=== PATIENT | male | born 1960 | race Caucasian/White ===

== ENCOUNTER 2024-12-30 08:43 | Day surgery (SDC) | payer OTHER ==
[2024-12-30 09:07] VITALS: TEMP 98.6
[2024-12-30] MEDS: IV FLUID CONTINUATION 1,000 ML IV ONE ×2 (09:26→09:37)
[2024-12-30] MEDS: MIDAZOLAM 2 MG/2 ML VIAL IV ONE (09:26)
[2024-12-30] MEDS: LACTATED RINGERS 1,000 ML IV SCH (09:26)
[2024-12-30] MEDS ORDERED: PROPOFOL 10 MG/ML 20 ML VIAL IV ONE (09:39)
--- NOTE | 2024-12-30 10:08 | P.PCN ---
Date of Procedure: 12/30/24 Procedure(s) Performed: BRIEF HISTORY: Patient is a 70-year-old pleasant white male scheduled for an elective colonoscopy as a part of evaluation of chronic diarrhea for the last 3 months. He has a 10 x 1 cm loose watery consistency but no blood or mucus in the stool PROCEDURE PERFORMED: Colonoscopy with random biopsies. PREOPERATIVE DIAGNOSIS: Chronic diarrhea. IV sedation per Anesthesia. PROCEDURE: After informed consent was obtained, the patient, was brought into the endoscopy unit. IV sedation was administered by Anesthesia under continuous monitoring. Digital rectal examination was normal. Initially the Olympus CF-160 flexible video colonoscope was then inserted in the rectum, gradually advanced into the cecum without any difficulty. Careful examination was performed as the scope was gradually being withdrawn. Ileocecal valve and the appendiceal orifice were visualized and appeared normal. Prep was excellent. Mucosa of the cecum, ascending colon, transverse colon, descending colon, sigmoid colon, and rectum appeared normal. Random biopsies were done from the ascending and descending colon rule out microscopic/collagenous colitis retroflexion was performed in the rectum and small internal hemorrhoid were seen. The patient tolerated the procedure well. IMPRESSION: Normal-appearing colon from rectum to cecum with no evidence of colitis or colorectal neoplasia Small internal hemorrhoids. RECOMMENDATIONS: Findings of this examination were discussed with the patient as well as his family. He was advised to follow-up with the biopsy results. He will be seen in the office in 2 weeks..
[2024-12-30 10:14] VITALS: RESP 16
[2024-12-30 10:37] VITALS: BP 100/50; PULSE 63
== END 2024-12-30 10:55 | disposition home or self-care (01) ==
LOC: ORWHC2ENDO 08:43
PROVIDERS: ATTEND Internal Medicine Gastroenterology
DX: K64.8 Other hemorrhoids (principal); Z88.6 Allergy status to analgesic agent; Z88.1 Allergy status to other antibiotic agents; Z79.899 Other long term (current) drug therapy
CPT/HCPCS: 88305; 45380; J2250; J2704